=== PATIENT | male | born 1995 | race Two or more races ===

== ENCOUNTER 2024-03-10 11:18 | Inpatient (IN) | payer OTHER ==
[~2024-03-10] VITALS: Ht 167.6 cm; Wt 71.6 kg
[2024-03-10 13:47] LABS: BASOPHILS % (AUTO) 0.9 % (0.0-2.0); EOSINOPHILS % (AUTO) 1.3 % (1.0-6.0); HEMATOCRIT 46.2 % (41-53); HEMOGLOBIN 16.1 g/dL (13.5-17.5); LYMPHOCYTES # (AUTO) 1.8 K/uL (1.0-4.8); LYMPHOCYTES % (AUTO) 32.2 % (22.0-44.0); MEAN CORPUSCULAR HEMOGLOBIN 31.3 pg (26.0-34.0); MEAN CORPUSCULAR HGB CONC 34.8 G/dL (31.0-37.0); MEAN CORPUSCULAR VOLUME 90 fL (80-100); MONOCYTES # (AUTO) 0.6 K/uL (0.1-1.0); MONOCYTES % (AUTO) 10.2 % (2.0-9.0); NEUTROPHILS # (AUTO) 3.2 K/uL (1.8-7.7); NEUTROPHILS % (AUTO) 55.4 % (40.0-70.0); PLATELET COUNT (AUTO) 177 K/uL (150-450); RED BLOOD CELL COUNT(AUTO) 5.14 MIL/uL (4.50-5.90); RED CELL DISTRIBUTION WIDTH 13.7 % (11.5-14.5); WHITE BLOOD COUNT (AUTO) 5.7 K/uL (4.5-11.0)
[2024-03-10 13:58] LABS: ANION GAP 16 mmol/L (8-16); CALCIUM, TOTAL 8.9 mg/dL (8.8-10.5); CARBON DIOXIDE 21 mmol/L (22-29); CHLORIDE 101 mmol/L (98-107); CREATININE 0.82 mg/dL (0.60-1.30); GLOMERULAR FILTR. RATE CALC > 60 mL/min (>60); GLUCOSE,RANDOM 66 mg/dL (70-110); POTASSIUM 3.2 mmol/L (3.5-5.1); SODIUM SERUM 138 mmol/L (136-145); UREA NITROGEN, BLOOD 5 mg/dL (7-18)
[2024-03-10 14:03] LABS: PH,URINE DRUG SCREEN 5.5 (5.0-8.0)
[2024-03-10 14:16] LABS: ALCOHOL, URINE DRUG SCREEN NEGATIVE (NEGATIVE); AMPHET/METH SCREEN,URINE NEGATIVE (NEGATIVE); BARBITURATE SCREEN, URINE NEGATIVE (NEGATIVE); BENZODIAZEPINES SCREEN,URINE NEGATIVE (NEGATIVE); CANNABINOID SCREEN,URINE NEGATIVE (NEGATIVE); COCAINE SCREEN,URINE NEGATIVE (NEGATIVE); METHADONE SCREEN, URINE NEGATIVE (NEGATIVE); OPIATE SCREEN,URINE NEGATIVE (NEGATIVE); PHENCYCLIDINE SCREEN,URINE NEGATIVE (NEGATIVE)
[2024-03-10 14:22] LABS: ALCOHOL, BLOOD (SERUM) < 3 mg/dL (0-10)
[2024-03-10 17:58] VITALS: BP 124/84; PULSE 78; RESP 18; TEMP 98.2; O2SAT 96
[2024-03-10 20:01] VITALS: BP 130/86; PULSE 74; RESP 18; TEMP 97.9; O2SAT 96
[2024-03-10] MEDS: POTASSIUM CHLORIDE 20 MEQ ER TABLET PO ONE (21:07)
[2024-03-11 08:19] VITALS: BP 119/84; PULSE 78; RESP 18; TEMP 97.7; O2SAT 98
[2024-03-11] MEDS ORDERED: POTASSIUM CHL 10 MEQ/WATER 50 ML IV PRN (09:30)
[2024-03-11] MEDS ORDERED: ACETAMINOPHEN 325 MG TABLET PO PRN (09:30)
[2024-03-11] MEDS ORDERED: ONDANSETRON HCL 4 MG/2 ML VIAL IVP PRN (09:30)
[2024-03-11] MEDS ORDERED: MAGNESIUM HYDROXIDE SUSPENSION 30 ML UDCUP PO PRN (09:30)
[2024-03-11] MEDS: HALOPERIDOL LACTATE 5 MG/ML VIAL IM PRN (09:45)
[2024-03-11] MEDS: LORazepam 2 MG/ML VIAL IM PRN (09:46)
[2024-03-11 12:18] LABS: ANION GAP 8 mmol/L (8-16); CALCIUM, TOTAL 9.1 mg/dL (8.8-10.5); CARBON DIOXIDE 26 mmol/L (22-29); CHLORIDE 101 mmol/L (98-107); CREATININE 0.95 mg/dL (0.60-1.30); GLOMERULAR FILTR. RATE CALC > 60 mL/min (>60); GLUCOSE,RANDOM 115 mg/dL (70-110); POTASSIUM 3.5 mmol/L (3.5-5.1); SODIUM SERUM 135 mmol/L (136-145); UREA NITROGEN, BLOOD 6 mg/dL (7-18)
[2024-03-11 20:00] VITALS: BP 140/81; PULSE 84; RESP 20; TEMP 97.6; O2SAT 100
[2024-03-11 20:03] VITALS: BP 140/81; PULSE 84; RESP 20; TEMP 97.6; O2SAT 100
[2024-03-12 05:34] VITALS: BP 108/58; PULSE 66; RESP 18; TEMP 98; O2SAT 98
[2024-03-12 08:03] VITALS: BP 122/54; PULSE 81; RESP 17; TEMP 97.9; O2SAT 99
[2024-03-12] MEDS: FAMOTIDINE 20 MG TABLET PO SCH (08:42)
[2024-03-12] MEDS: OLANZapine 5 MG RAPDIS TABLET PO ONE (11:20)
[2024-03-12 11:58] LABS: APPEARANCE,URINE CLEAR (CLEAR); BILIRUBIN,URINE NEGATIVE (NEGATIVE); COLOR,URINE COLORLESS (YELLOW); GLUCOSE, URINE (UA) NEGATIVE (NEGATIVE); KETONES,URINE NEGATIVE (NEGATIVE); LEUKOCYTE ESTERASE ,URINE NEGATIVE (NEGATIVE); NITRATE,URINE NEGATIVE (NEGATIVE); OCCULT BLOOD,URINE NEGATIVE (NEGATIVE); PH,URINE 6.5 (5.0-8.0); PROTEIN,URINE NEGATIVE (NEGATIVE); SPECIFIC GRAVITIY, URINE 1.004 (1.003-1.030); UROBILINOGEN,URINE <=1.0 mg/dL (<=1.0)
[2024-03-12 13:20] LABS: ANION GAP 6 mmol/L (8-16); CALCIUM, TOTAL 8.7 mg/dL (8.8-10.5); CARBON DIOXIDE 31 mmol/L (22-29); CHLORIDE 100 mmol/L (98-107); CREATININE 1.04 mg/dL (0.60-1.30); GLOMERULAR FILTR. RATE CALC > 60 mL/min (>60); GLUCOSE,RANDOM 93 mg/dL (70-110); POTASSIUM 3.3 mmol/L (3.5-5.1); SODIUM SERUM 137 mmol/L (136-145); UREA NITROGEN, BLOOD 3 mg/dL (7-18)
[2024-03-12 19:20] VITALS: BP 107/71; PULSE 96; RESP 18; TEMP 97.6; O2SAT 96
[2024-03-12] MEDS: OLANZapine 5 MG RAPDIS TABLET PO SCH (20:25)
[2024-03-13 05:16] VITALS: BP 103/65; PULSE 67; RESP 18; TEMP 98.2; O2SAT 100
[2024-03-13 07:56] VITALS: BP 94/59; PULSE 65; RESP 18; TEMP 97.5; O2SAT 96
[2024-03-13] MEDS: POTASSIUM CHLORIDE 20 MEQ ER TABLET PO PRN (09:33)
[2024-03-14 05:23] VITALS: BP 111/71; PULSE 66; RESP 18; TEMP 97.9; O2SAT 100
[2024-03-14 07:29] VITALS: BP 103/68; PULSE 67; RESP 18; TEMP 97.8; O2SAT 95
[2024-03-14] MEDS ORDERED: OLAN5TAB52 PO (15:43)
[2024-03-14] MEDS ORDERED: ACET-2247 PO (15:44)
[2024-03-14] MEDS ORDERED: MAGN-169 PO (15:44)
[2024-03-14 20:00] VITALS: BP 104/71; PULSE 88; RESP 18; TEMP 98; O2SAT 96
== END 2024-03-14 20:35 | DRG 641 ==
LOC: EMS 11:18 → EDH 13:18 → 6S 16:00
PROVIDERS: ADMIT Internal Medicine; ATTEND Internal Medicine
DX: E87.6 Hypokalemia (principal); F23 Brief psychotic disorder; F99 Mental disorder, not otherwise specified; I10 Essential (primary) hypertension; F31.9 Bipolar disorder, unspecified; Z91.148 Patient's other noncompliance with medication regimen for other reason
CPT/HCPCS: 80048; 80307; 81003; 85025; 99285; G0480; J1630; J2060